=== PATIENT | male | born 1945 | race Caucasian/White ===

== ENCOUNTER 2024-01-16 13:39 | Outpatient (AMB) | payer MEDICARE, OTHER, SELFPAY ==
--- NOTE | 2024-01-16 13:40 | A.OFFVIS_ITS ---
Intake Vital Signs 01/16/24 13:58 Height 5 ft 8 in Weight 182 lb 4 oz BMI 27.7 BP 142/80 H Blood Pressure Location Lt brachial Position Sitting Pulse 67 Pulse Source Pulse Oximeter Pulse Oximetry (%) 97 Oxygen Delivery Method Room Air Intake Visit Reasons: ENP-RAFAEL/Chronic Insomnia - CONF w/address Intake Note: Patient presents for RAFAEL/Chronic Insomnia. Allergies Ulises food Allergy (Mild, Uncoded 01/16/24 13:49) Rash HPI HPI Comments History of Present Illness Details 78 y/o male patient presents for new in- person visit for evaluation of chronic insomnia and RAFAEL. Pt reports difficulty falling asleep and staying sleep. He uses melatonin, magnesium and trazodone for sleep. He wakes up frequently at night. Having difficulty sleeping due to nasal congestion and cold feet, neuropathy. He reports fibromyalgia and has weird body feeling, and it also wakes him up. He uses gabapentin 600 mg qHS and melatonin 3mg. Pt was aslo diagnosed with RAFAEL and has been using CPAP. He is followed by [facility]. He moved from [place] 1.5 year ago. His last sleep study was done 3 years ago, had new CPAP. He compliant for CPAP. [facility] Surgical History (Updated 01/16/24 @ 13:53 by Jo Ann Hartman CMA) History of carpal tunnel surgery Previous back surgery Family History Father High blood sugar Brother Mental deterioration Brother Cancer of pancreas Social History (Updated 01/16/24 @ 13:58 by Jo Ann Hartman CMA) Housing: Assisted Living Facility Alcohol intake: never Patient Tobacco Use Status: Never used Tobacco Review of Systems Const All systems reviewed & are unremarkable except as noted in HPI and below Physical Exam Vital Signs: Last Vital Signs Pulse 67 01/16/24 13:58 BP 142/80 H 01/16/24 13:58 Pulse Ox 97 01/16/24 13:58 Oxygen Delivery Method Room Air 01/16/24 13:58 BMI result Body Mass Index 27.7 Const General: cooperative Nutritional Appearance: average body habitus Orientation/consciousness: patient oriented x3 Neck Neck: Yes full ROM and Yes supple Resp Effort & Inspection: normal respiratory effort and able to speak in complete sentences Neuro General: patient oriented x3, gait normal and moves all extremities Cognition (Neuro): normal cognition Gait exam (Neuro): Normal gait present Motor exam (neuro): 5/5 motor strength present throughout Psych Appearance: grossly normal Mental Status: mental status grossly normal Speech and movement: Normal speech and movement present Affect: normal affect Attitude: cooperative Assessment & Plan Assessment & Plan (1) Insomnia: Code(s): G47.00 - Insomnia, unspecified (2) RAFAEL on CPAP: Code(s): G47.33 - Obstructive sleep apnea (adult) (pediatric) Plan Pt was evaluated and discussed the plan of care with Dr. Miller. Advised patient to continue to take trazodone 25 mg, and melatonin up to 9 mg. Increase gabapentin to 900 mg qHS to manage neuropathy. Continue to take Magnesium 400 mg q HS. Sleep hygiene education provided. Continue to use CPAP to treat sleep apnea. Medications: New gabapentin 300 mg PO BEDTIME 30 caps 3RF 30 days gabapentin Take 300 mg, 1 capsule with gabapentin 600 mg qHS 300 mg PO BEDTIME 30 caps 3RF 30 days Coding Level of Care Code New Pt Level 3 (28296) Diagnoses Insomnia G47.00 RAFAEL on CPAP G47.33
[2024-01-16 13:58] VITALS: BP 142/80; PULSE 67; O2SAT 97; BMI 27.7
== END 2024-01-16 14:35 | disposition home or self-care (01) ==
PROVIDERS: Visit Provider Nurse Practitioner Family
DX: G47.00 Insomnia, unspecified (principal); G47.33 Obstructive sleep apnea (adult) (pediatric)
CPT/HCPCS: 99203

== ENCOUNTER → 2024-01-16 13:39 | Outpatient (BNVA) | payer MEDICARE, OTHER, SELFPAY | PROVIDERS: Visit Provider Nurse Practitioner Family | DX: G47.33 Obstructive sleep apnea (adult) (pediatric) (principal); G47.00 Insomnia, unspecified | CPT/HCPCS: 99202 ==

== ENCOUNTER 2025-01-01 10:04 | Outpatient (AMB) | payer MEDICARE, SELFPAY ==
[2025-01-01 10:21] VITALS: BP 144/69; PULSE 78; O2SAT 97; BMI 25.8
--- NOTE | 2025-01-01 10:21 | A.OFFVIS_ITS ---
Vital Signs 01/01/25 10:21 Height 5 ft 8 in Weight 170 lb BMI 25.8 BP 144/69 H Blood Pressure Location Lt brachial Position Sitting Pulse 78 Pulse Source Pulse Oximeter Pulse Oximetry (%) 97 Oxygen Delivery Method Room Air Intake Visit Reasons: Uncontrolled pain Transit Bus Operator Required: No Allergies Kosovan food Allergy (Mild, Uncoded 01/01/25 10:21) Rash Medication List - Last Reconciled 01/01/25 by Selene Pastor, SHEET METAL DUCT INSTALLER APPRENTICE amlodipine 5 mg PO DAILY aspirin 81 mg PO DAILY bupropion HCl XL 450 mg PO DAILY cetirizine 10 mg PO DAILY PRN cholecalciferol (vitamin D3) 10 mcg PO DAILY clobetasol 0.05% 1 appl topical BID coenzyme Q10 100 mg PO DAILY dextroamphetamine-amphetamine 20 mg (Adderall) 20 mg PO BID dextroamphetamine-amphetamine 30 mg ER 30 mg PO DAILY fluticasone propionate 50 mcg/actuation 1 spray intranasal DAILY irbesartan 150 mg PO DAILY melatonin 3 mg PO BEDTIME PRN metformin 1,000 mg PO DAILY mirabegron ER 50 mg PO DAILY oxycodone 5 mg PO BID PRN pregabalin 100 mg PO DAILY psyllium husk 0.52 grams PO DAILY tadalafil 2.5 mg PO DAILY tamsulosin (Flomax) 0.4 mg PO BEDTIME trazodone 25 mg PO DAILY HPI Comments Details: Tavares is very pleasant 79 years old gentleman who presents in my office with complains on pain in the right hip and right knee. He reports that this pain is coming from bilateral osteoarthritis of the knees as well as right hip arthritis. He stated that this pain started 8 weeks ago however I believe that it could be longer than that probably . He has very poor historian and he is certainly has short term memory problem because he during the conversation today kept asking me and repeating questions about issues we just discussed. He came to this office with the desire to increase the dose of the opioid medications he was prescribed By his primary care physician. He was prescribed oxycodone 5 mg q.d., unfortunately even this small dose might be detrimental for his memory. I do not think he would be a good candidate for any opioids short of something immediately after the surgical procedures. He states that he can not sleep normally can not do activities of daily living can not take care of himself and can not function normally. He is retired individual and he lives in the nursing home. For ambulation he uses walker. He reports that movements aggravate his pain. He tried topical medications which minimally helped his pain. The pain is most severe in the evening and afternoon. The pain is less severe in the morning. In terms of tissue he describes his pain as pulsing and pounding, stabbing and lancinating, sharp and lacerating, pinching and crushing, hot burning and searing, sore and aching, fearful and terrifying, punishing and killing, tight squeezing and tearing. He had multiple images in the past demonstrating arthritis of the hip and arthritis of the bilateral knees, he denies any physical therapy recently. He received blinded knee steroid injecti on which helped his pain moderately however for the short period of time. His past medical history significant for diabetes, diabetic neuropathy, osteoarthritis psoriasis Arthritis, lichen planus, obstructive sleep apnea on CPAP machine. His past surgical history significant for L4-5 lumbar laminectomy with fusion. Social history he is nursing home resident, denies smoking cigarettes denies drinking alcohol denies coffee and caffeinated beverages and denies recreational drugs. [facility] Surgical History (Updated 01/16/24 @ 13:53 by SANDRA oCntreras) History of carpal tunnel surgery Previous back surgery Family History Father High blood sugar Brother Mental deterioration Brother Cancer of pancreas Social History (Updated 01/16/24 @ 13:58 by SANDRA Contreras) Housing: Assisted Living Facility Alcohol intake: never Patient Tobacco Use Status: Never used Tobacco Review of Systems Const Reports no additional complaints ENT Reports Normal hearing present Card Reports no additional complaints Resp Reports as per HPI GI Reports no additional complaints Reports no additional complaints Musc Reports as per HPI Neuro Reports no additional complaints, Reports Normal hearing present, Denies Abnormal speech present, Denies confusion and Denies Sensory deficit (Neuro) Psych Reports as per HPI and Denies confusion Physical Exam Vital Signs: Last Vital Signs Pulse 78 01/01/25 10:21 BP 144/69 H 01/01/25 10:21 Pulse Ox 97 01/01/25 10:21 Oxygen Delivery Method Room Air 01/01/25 10:21 BMI result Body Mass Index 25.8 Const General: no acute distress; No confusion Orientation/consciousness: patient oriented x3 and No confusion Eyes General: appearance normal, both eyes and all related structures Pupils: Equal, round and reactive pupils present EOM: EOMs intact bilaterally Neck Neck: Yes full ROM Chest Chest palpation & inspection: normal inspection of the chest Resp Effort & Inspection: normal respiratory effort, able to speak in complete sentences, normal respiratory pattern, no audible wheezes and no cough Cardio Jugular venous distension: no JVD GI Inspection: Yes normal to inspection Neuro General: patient oriented x3, gait normal and No confusion Cranial nerves: Yes CN's II-XII intact bilaterally, Yes Equal, round and reactive pupils present, Yes Normal hearing present and Yes Ability to bilaterally elevate shoulders present Speech: No Abnormal speech present Gait exam (Neuro): Normal gait present Motor exam (neuro): 5/5 motor strength present throughout Sensory Exam: No Sensory deficit (Neuro) Extrem Other: Lateral rotation of the right hip causes severe aggravation pain of the groin. There is no swelling on examination of the bilateral knees there is tenderness on palpation of the right knee in the patella and quadriceps femoris ligaments. There is crepitus with right knee motions. General: No pedal edema Psych Speech and movement: Normal speech and movement present Affect: normal affect Attitude: cooperative Thought process: Normal thought process present Thought content: Normal thought content present Insight: Good insight present (Psych) Judgement: Good judgement present (Psych) Assessment & Plan Assessment & Plan (1) Osteoarthritis of knees, bilateral: Code(s): M17.0 - Bilateral primary osteoarthritis of knee Category: Medical (2) Chronic pain syndrome: Code(s): G89.4 - Chronic pain syndrome Category: Medical (3) Osteoarthritis of right hip: Code(s): M16.11 - Unilateral primary osteoarthritis, right hip Category: Medical (4) Short-term memory loss: Code(s): R41.3 - Other amnesia Category: Medical Plan 1. With short memory problems I do not think opioid medications is appropriate way of treating his pain. I do not think current doses of oxycodone 5 mg he was prescribed improve his cognition and memory. I will start him on Celebrex 100 mg b.i.d.. I would be willing to increase it to 200 mg b.i.d. if this medication has no side effects. 2. I offered him Synvisc injection in his knee on the right, patient agreed for the procedure. 3. I also will schedule him for fluoroscopy guided intra-articular right hip steroid injection. 4. I also recommended him to use physical therapy in his residence home for physical therapy of his knees and his right hip. Open order for physical therapy will be given to the patient. I would need to request his residence to provide us summary of the completion of physical therapy. Orders: Orders PT Evaluation and Treatment Today M16.11 - Unilateral primary osteoarthritis, right hip, M17.0 - Bilateral primary osteoarthritis of knee Medications: New celecoxib (Celebrex) 100 mg PO BID 60 caps 2RF 30 days Patient Instructions: I here by testify that I spent 48 minutes in conversation with this patient as well as planning his care and organizing this note. Coding Level of Care Code New Pt Level 4 (91711) Diagnoses Osteoarthritis of knees, bilateral M17.0 Chronic pain syndrome G89.4 Osteoarthritis of right hip M16.11 Short-term memory loss R41.3
--- OUTSIDE RECORDS SUMMARY | 2025-01-01 12:07 | XMS_ITS | Encounter Summary ---
Author Organization [facility], Address [address] [place] [address] Phone Care Team Providers Care Platemaker Name Role Phone Delfina Friedman MD Primary Care Provider [phone] Encounter Details Date Type Department Care Team (Late st Contact Info) Description 01/13/2023 Documentation Only [facility], - [place] [address] [place] [address] Soraya Barone [address] [place] [address] Social History Tobacco Use Types Packs/Day Years Used Date Smoking Tobacco: Never Alcohol Use Standard Drinks/Week Comments Not Currently 0 (1 standard drink = 0.6 oz pur e alcohol) Sex and Gender Information Value Date Recorded Sex Assigned at Not on file Legal Sex Male 9:24 AM EST Gender Identity Not on file Sexual Orientation Not on file 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 No / Unsure 01/13/2023 1:44 PM EST documented as of this encounter Plan of Treatment Not on file documented as of this encounter Visit Diagnoses Not on filedocumented in this encounter Care Teams Platemaker Relationship Specialty Start Date End Date Delfina Friedman MD [address] [place] [address] PCP - General Internal Medicine 07/12/23 documented as of this encounter
--- OUTSIDE RECORDS SUMMARY | 2025-01-01 12:07 | XMS_ITS | Clinical Summary ---
Author Organization [facility], Address [address] [place] [address] Phone Care Team Providers Care Napper Fixer Name Role Phone Delfina Friedman MD Primary Care Provider [phone] Allergies Active Allergy Reactions Criticality Noted Date Comments Other Hives,Rash,Swelling Low 01/07/2013 Ukrainian food spices specific to [place] Ukrainian food spices specific to [place] Medications adalimumab (HUMIRA) 40 MG/0.8ML Pen-injector Kit Inject 40 mg under the skin Active amLODIPine (NORVASC) 2.5 MG tablet Take 1 tablet by mouth in the morning. 06/01/2022 Active amphetamine-dex troamphetamine (ADDERALL) 30 MG tablet Take 60 mg by mouth every morning 08/08/2022 Active ascorbic acid (VITAMIN C) 500 MG tablet Take 500 mg by mouth in the morning. Active aspirin (ST WILMER) 81 MG EC tablet Take 81 mg by mouth in the morning. 10/11/2022 Active buPROPion XL (WELLBUTRIN XL) 300 MG 24 hr tablet Take 450 mg by mouth in the morning. Active cetirizine (ZyrTEC) 10 MG tablet Take 20 mg by mouth in the morning. 06/01/2022 Active cholecalciferol (VITAMIN D-3) 25 MCG (1000 UT) tablet Take 1,000 Units by mouth in the morning. Active clobetasol (TEMOVATE) 0.05 % ointment 07/15/2022 Active insulin aspart (NovoLOG) 100 UNIT/ML injection Inject under the skin Active irbesartan (AVAPRO) 150 MG tablet Take 150 mg by mouth in the morning. Active metFORMIN (GLUCOPHAGE) 1000 MG tablet Take 1,000 mg by mouth in the morning. Active Mirabegron ER 50 MG tablet sustained-relea se 24 hour Take 2 tablets by mouth daily 05/20/2022 Active pregabalin (LYRICA) 100 MG capsule Take 300 mg by mouth in the morning. Active tadalafil (CIALIS) 2.5 MG tablet Take 10 mg by mouth in the morning. Active tamsulosin (FLOMAX) 0.4 MG 24 hr capsule Take 0.4 mg by mouth in the morning. 07/15/2022 Active traMADol (ULTRAM) 50 MG tablet Take 50 mg by mouth 07/20/2022 Active traZODone (DESYREL) 50 MG tablet Take 100 mg by mouth in the morning. Active Active Problems Problem Noted Date Diagnosed Date Renal disorder due to type 2 diabetes mellitus 0 07/12/2023 Chronic kidney disease, stage 2 (mild) 3 Disorder of nervous system due to type 2 diabete s mellitus 01/10/2023 Overview (01/10/2023): adult-onset diabetes complicated by neuropathy and Uropathy; has insulin pump and metformin daily. fasting bs 100s, 08/19/21 cbc and cmp reviewed, glucose 160, a1c 6.1; followed closely with sheriff's sergeant Dr. roque Uses DialMyApp continuous glucose monitor Last Assessment & Plan: Appreciate Dr. Sharon Beltrán have improved since she lowered his basal dose insulin Mixed hyperlipidemia 11/16/2022 Overview (01/10/2023): Last Assessment & Plan: No recent labs Continue heart healthy diet. Acute nontraumatic kidney injury 03/29/2022 Type 2 diabetes mellitus without complication Overview (01/10/2023): has insulin pump and metformin daily. fasting bs 100s, 08/19/21 cbc and cmp reviewed, glucose 160, a1c 6.1; followed closely with sheriff's sergeant Dr. roque Last Assessment & Plan: Controlled. Hemoglobin A1c is 6.0% the patient does not have anemia. As for his initial question of stopping insulin and it is possible that we can stop insulin and possibly prescribe oral antidiabetic medications or GLP-1 agonist weekly. He has no contraindications such as medullary thyroid carcinoma or pancreatitis. However I informed him that if we stop insulin that he will not be able to use the continuous glucose monitor any longer unless he has a long-acting insulin injection daily. He has decided that he would like to continue managing his diabetes with the insulin pump and CGM. He does have occasional postprandial hyperglycemia in the 200 range and this is because he is not taking into account his carbohydrate intake. He also needs to change his glucose target to be 70-180 mg/dL currently he has a set at 70-149 mg/dL. He was advised to stop bolusing by entering carbohydrate intakes for his meal to prevent postprandial hyperglycemia. Also advised to contact his [employer] company and gave them my information so that we can ensure that he gets his diabetic supplies on a timely basis. I will check a hemoglobin A1c urine microalbumin and lipid panel for the follow-up visit. Primary hyperparathyroidism 06/08/2020 Overview (01/10/2023): SESTAMIBI was negative (2019). NM scan of parathyroid, in which no parathyroid adenoma was localized (06/06/19) S/p parathyroidectomy on June 08, 2020. Last Assessment & Plan: Continues to see Dr. Roque Needs continued conversation Will recheck calcium Last Assessment & Plan: Appetite seems to have returned after surgery. Calcium levels wnl Iron deficiency anemia 11/05/2015 Essential hypertension 05/03/2015 Overview (01/10/2023): BP 129/58, irbersartan and amlodipine for years, followed by automotive mechanic here. Last Assessment & Plan: Controlled No change in treatment Last Assessment & Plan: Blood pressure well managed on ARB and CCB. Encouraged low sodium, heart healthy diet. Anemia 05/02/2011 Overview (01/10/2023): Eval By Dr. Gabrielle Sanchez in January 2015: mild normocytic hypoproliferative anemia since early November 2014... contributory factors may include renal dysfunction, given his creatinine of 1.5 today. Additionally, anemia of chronic inflammation may be present given his underlying psoriatic arthritis and chronic use of Humira. Additionally, looking back at his previous indices, he has clearly been iron deficient in the past, with ferritin values often in the low 20 range. However, I note his most recent value from December 2014 was adequate... I do not see findings on his peripheral smear that would be concerning for autoimmune hemolysis. I did note occasional dysplastic-appearing neutrophils, although the findings were generally quite mild. Further, I note that he has had a mild monocytosis intermittently since 2001, although this has not been sustained. Nonetheless, a mild monocytosis can be a precursor of more serious hematolymphoid disorders. We discussed today, that given his anemia is relatively mild and nonprogressive, various options would include an up-front bone marrow examination, or close expectant management. After an extensive discussion of risks, benefits, and alternatives, he opted for the latter. In that regard, I would recommend surveillance of his blood counts roughly every 6 months or as otherwise dictated by his clinical symptoms. Should he develop worsening anemia, other cytopenias, or a persistent/progressive monocytosis, I would be happy to see him back for further evaluation at that time, including that of the bone marrow. Last Assessment & Plan: He will try to increase his iron to twice per day. If he tolerates it, then he'll increase to three times per day temporarily. Continue daily Vitamin B12 Benign prostatic hyperplasia 05/27/2010 Overview (01/10/2023): Last Assessment & Plan: Cont 5 mg cialis daily Immunizations Name Administration Dates Next Due DTaP 04/14/2010 Hep A / Hep B 04/14/2010,03/31/2010,03/22/2010 IPV 03/23/2010 Influenza Split High Dose Pr eservative Free IM 08/12/2019,08/10/2018,08/04/2017,09/10,08/03/2015,10/01/2012 Influenza Split Preservative Free ID 08/06/2016 Influenza Vaccine, Quadrival ent, Adjuvanted 08/15/2021,07/28/2020 Influenza, Unspecified 08/09/2017,2012,09/16/2013,07/14,09/14/2006 Moderna SARS-COV-2 06/21/2022, 2,06/20/2021,02/03,01/05/2021 Pneumococcal Conjugate 13-Valent 08/06/2016,03/2015 Pneumococcal Polysaccharide 05/08/2018, 2,09/22/2003 Shingrix 01/08/2019,07/23/2018 Tdap 04/08/2022,07/05/2016 Typhoid, Parenteral 03/31/2010 Zoster 03/06/2013 Family History Medical History Relation Comments Diabetes Father Diabetes Mother Relation Status Comments Father Mother Social History Tobacco Use Types Packs/Day Years Used Date Smoking Tobacco: Never Tobacco Cessation:Counseling Given: Not Answered Alcohol Use Standard Drinks/Week Comments Not Currently [...] Not on file Not on f ile Plan of Treatment Health Maintenance Due Date Last Done Comments Hepatitis B Vaccine (2 of 3 - Hep B Twinrix 3-dose series) 05/12/2010 04/14/2010, 03/31/2010, 03/22/2010 Diabetes: Hemoglobin A1C 11/17/2022 Diabetes: Ophthalmology Exam 11/17/2022 10/07/2020, 01/15/2020 Diabetes: Pedal Pulse Checked 11/17/2022 Diabetes: Sensory Foot Exam 11/17/2022 Diabetes: Visual Foot Exam 11/17/2022 Influenza Vaccine (#1) 2024 2, 08/15/2021, 07/28/2020, Additional history exists Pneumococcal Vaccine: 65+ Years Completed 05/08/2018, 08/06/2016, 12/11/2014, Additional history exists Insurance MEDICARE [facility] Care Teams Napper Fixer Relationship Specialty Start Date End Date Delfina Friedman MD [address] [place] [address] PCP - General Internal Medicine 07/12/23
--- OUTSIDE RECORDS SUMMARY | 2025-01-01 12:07 | XMS_ITS | Encounter Summary ---
Author Organization [facility], Address [address] [place] [address] Phone Care Team Providers Care Staff Submarine Warfare Officer Name Role Phone Delfina Friedman MD Primary Care Provider Encounter Details Date Type Department Care Team (Late st Contact Info) Description 08/19/2024 Documentation Only [facility], - [place] [address] [place] [address] Clare Dey [address] [place] [address] Social History Tobacco Use Types Packs/Day Years [...] Not on file Not on f ile documented as of this encounter Plan of Treatment Not on file documented as of this encounter Visit Diagnoses Not on filedocumented in this encounter Care Teams Staff Submarine Warfare Officer Relationship Specialty Start Date End Date Delfina Friedman MD [address] [place] [address] PCP - General Internal Medicine 07/12/23 documented as of this encounter
--- OUTSIDE RECORDS SUMMARY | 2025-01-01 12:07 | XMS_ITS | Encounter Summary ---
Author Organization [facility], Address [address] [place] [address] Phone Care Team Providers Care Envelope Addresser Name Role Phone Delfina Friedman MD Primary Care Provider [phone] Encounter Details Date Type Department Care Team (Late st Contact Info) Description 07/11/2023 Documentation Only [facility], - [place] [address] [place] [phone] Robby Combs MD [address] [place] [id number] Social History Tobacco Use Types Packs/Day Years [...] on filedocumented in this encounter Care Teams Envelope Addresser Relationship Specialty Start Date End Date Delfina Friedman MD [address] [place] [address] PCP - General Internal Medicine 07/12/23 documented as of this encounter
--- OUTSIDE RECORDS SUMMARY | 2025-01-01 12:07 | XMS_ITS | Encounter Summary ---
Author Organization [facility], Address [address] [place] [address] Phone Care Team Providers Care Technology Education Instructor Name Role Phone Delfina Friedman MD Primary Care Provider [phone] Encounter Details Date Type Department Care Team (Late st Contact Info) Description 01/13/2023 Office Communication [facility], - [address] [facility] [address] [place] [address] Robby Combs MD [address] [place] [address] [facility] [place] [id number] Social History Tobacco Use Types Packs/Day Years [...] PM EST documented as of this encounter Miscellaneous Notes * Telephone Encounter - Robby Combs MD - 01/17/2023 12:58 PM EDT ty * Telephone Encounter - Melissa Mills - 01/16/2023 12:06 PM EDT Pt was not a pt at that office documented in this encounter Plan of Treatment Not on file documented as of this encounter Visit Diagnoses Not on filedocumented in this encounter Care Teams Technology Education Instructor Relationship Specialty Start Date End Date Delfina Friedman MD [address] [place] [address] PCP - General Internal Medicine 07/12/23 documented as of this encounter
== END 2025-01-01 11:17 | disposition home or self-care (01) ==
PROVIDERS: PCP Internal Medicine; Referring Provider Internal Medicine; Visit Provider Anesthesiology
DX: M17.0 Bilateral primary osteoarthritis of knee (principal); G89.4 Chronic pain syndrome; M16.11 Unilateral primary osteoarthritis, right hip; R41.3 Other amnesia
CPT/HCPCS: 99204

== ENCOUNTER → 2025-01-01 10:04 | Outpatient (BNVA) | payer MEDICARE, SELFPAY | PROVIDERS: PCP Internal Medicine; Referring Provider Internal Medicine; Visit Provider Anesthesiology | DX: M17.0 Bilateral primary osteoarthritis of knee (principal); M16.11 Unilateral primary osteoarthritis, right hip; R41.3 Other amnesia; G89.4 Chronic pain syndrome | CPT/HCPCS: 99202 ==

== ENCOUNTER 2025-01-20 09:59 | Outpatient (AMB) | payer MEDICARE, SELFPAY ==
--- NOTE | 2025-01-20 10:03 | MHC.OFFVIS ---
Vital Signs 01/20/25 10:04 Height 5 ft 8 in Weight 173 lb BMI 26.3 BP 99/54 L Blood Pressure Location Rt brachial Position Sitting Pulse 94 Pulse Source Pulse Oximeter Pulse Oximetry (%) 96 Oxygen Delivery Method Room Air Intake Visit Reasons: RIGHT KNEE SYNVISC INJECTION [employer] Ax Consultant Required: No Allergies Nepali food Allergy (Mild, Uncoded 01/20/25 10:07) Rash Medication List - Last Reconciled 01/20/25 by Selene Pastor, ACIDIZER amlodipine 5 mg PO DAILY aspirin 81 mg PO DAILY bupropion HCl XL 450 mg PO DAILY celecoxib (Celebrex) 100 mg PO BID 30 days cetirizine 10 mg PO DAILY PRN cholecalciferol (vitamin D3) 10 mcg PO DAILY clobetasol 0.05% 1 appl topical BID coenzyme Q10 100 mg PO DAILY dextroamphetamine-amphetamine 20 mg (Adderall) 20 mg PO BID dextroamphetamine-amphetamine 30 mg ER 30 mg PO DAILY fluticasone propionate 50 mcg/actuation 1 spray intranasal DAILY irbesartan 150 mg PO DAILY melatonin 3 mg PO BEDTIME PRN metformin 1,000 mg PO DAILY mirabegron ER 50 mg PO DAILY oxycodone 5 mg PO BID PRN pregabalin 100 mg PO DAILY psyllium husk 0.52 grams PO DAILY tadalafil 2.5 mg PO DAILY tamsulosin (Flomax) 0.4 mg PO BEDTIME trazodone 25 mg PO DAILY HPI Comments Details: Tavares is back in my office to receive a knee injection with Synvisc. See description of the procedure as below. He reports increased pain in the knees in the hips he relates the pain increase to detrimental weather. He reports mobility getting deteriorated. He is using walker for ambulation. Prior: complains on pain in the right hip and right knee. pain is coming from bilateral osteoarthritis of the knees as well as right hip arthritis. He has very poor historian and he is certainly has short term memory problem. He came to this office with the desire to increase the dose of the opioid medications he was prescribed By his primary care physician. He was prescribed oxycodone 5 mg q.d., unfortunately even this small dose might be detrimental for his memory. I do not think he would be a good candidate for any opioids short of something immediately after the surgical procedures. He states that he can not sleep normally can not do activities of daily living can not take care of himself and can not function normally. He is retired individual and he lives in the correction. He had multiple images in the past demonstrating arthritis of the hip and arthritis of the bilateral knees, he denies any physical therapy recently. He received blinded knee steroid injection which helped his pain moderately however for the short period of time. His past medical history significant for diabetes, diabetic neuropathy, osteoarthritis psoriasis Arthritis, lichen planus, obstructive sleep apnea on CPAP machine. His past surgical history significant for L4-5 lumbar laminectomy with fusion. [facility] Surgical History (Updated 01/16/24 @ 13:53 by SANDRA Contreras) History of carpal tunnel surgery Previous back surgery Family History (Reviewed 01/16/24 @ 13:57 by Jo Ann Hartman [facility]) Father High blood sugar Brother Mental deterioration Brother Cancer of pancreas Social History (Updated 01/16/24 @ 13:58 by SANDRA Contreras) Housing: Assisted Living Facility Alcohol intake: never Patient Tobacco Use Status: Never used Tobacco Review of Systems Const All systems reviewed & are unremarkable except as noted in HPI and below ENT Reports Normal hearing present Neuro Reports Normal hearing present, Denies Abnormal speech present, Denies confusion and Denies Sensory deficit (Neuro) Psych Denies confusion Physical Exam Vital Signs: Last Vital Signs Pulse 94 01/20/25 10:04 BP 99/54 L 01/20/25 10:04 Pulse Ox 96 01/20/25 10:04 Oxygen Delivery Method Room Air 01/20/25 10:04 BMI result Body Mass Index 26.3 Const General: no acute distress; No confusion Orientation/consciousness: patient oriented x3 and No confusion Eyes General: appearance normal, both eyes and all related structures Pupils: Equal, round and reactive pupils present EOM: EOMs intact bilaterally Neck Neck: Yes full ROM Chest Chest palpation & inspection: normal inspection of the chest Resp Effort & Inspection: normal respiratory effort, able to speak in complete sentences, normal respiratory pattern, no audible wheezes and no cough Cardio Jugular venous distension: no JVD GI Inspection: Yes normal to inspection Neuro General: patient oriented x3, gait normal and No confusion Cranial nerves: Yes CN's II-XII intact bilaterally, Yes Equal, round and reactive pupils present, Yes Normal hearing present and Yes Ability to bilaterally elevate shoulders present Speech: No Abnormal speech present Gait exam (Neuro): Normal gait present Motor exam (neuro): 5/5 motor strength present throughout Sensory Exam: No Sensory deficit (Neuro) Extrem Other: Lateral rotation of the right hip causes severe aggravation pain of the groin. There is no swelling on examination of the bilateral knees there is tenderness on palpation of the right knee in the patella and quadriceps femoris ligaments. There is crepitus with right knee motions. General: No pedal edema Psych Speech and movement: Normal speech and movement present Affect: normal affect Attitude: cooperative Thought process: Normal thought process present Thought content: Normal thought content present Insight: Good insight present (Psych) Judgement: Good judgement present (Psych) Office Procedures AMB Joint Injection/Aspiration Joint Injection/Aspiration Primary Site: right knee Prep: site was prepped using aseptic technique, site was prepped using sterile technique and injection warnings given Approach Used: anterolateral Coding 12378 - Large joint Procedure code (CPT) selection complete Office Meds Synvisc-One 48 mg/6 mL intra-articular syringe Performing Provider: Guicho Tucker MD Performing Location: [facility] [place] [facility] Administered by: Guicho Tucker MD on 01/20/25 11:22 Dose Route Admin Location Dispensed Lot Number Expiration Date NDC Finish Sander 48 mg intra-articular 6 mL [id number] 05/05/27 Durolane 60 mg/3 mL intra-articular syringe Performing Provider: Guicho Tucker MD Performing Location: [facility] [place] [facility] Documented (not given) by: Guicho Tucker MD on 01/20/25 11:22 Reason Not Given: Not Medically Necessary Assessment & Plan Assessment & Plan (1) Chronic pain syndrome: Code(s): G89.4 - Chronic pain syndrome Category: Medical (2) Osteoarthritis of knees, bilateral: Code(s): M17.0 - Bilateral primary osteoarthritis of knee Category: Medical (3) Short-term memory loss: Code(s): R41.3 - Other amnesia Category: Medical (4) Osteoarthritis of right hip: Code(s): M16.11 - Unilateral primary osteoarthritis, right hip Category: Medical Plan Synvisc injection is as above. Patient tolerated procedure fairly well. Next appointment is as needed. Orders: Orders AMB Hyaluronic Injection Today G89.4 - Chronic pain syndrome, M17.0 - Bilateral primary osteoarthritis of knee Medications: New Durolane (hyaluronate sodium, stabilized) 60 mg (3 mL) intra-articular ONCE 3 mL 0RF NS G89.4 - Chronic pain syndrome, M17.0 - Bilateral primary osteoarthritis of knee Synvisc-One (hylan g-f 20) 48 mg (6 mL) intra-articular ONCE 6 mL 0RF NS G89.4 - Chronic pain syndrome, M17.0 - Bilateral primary osteoarthritis of knee Coding Level of Care Code Est Pt Level 3 (66420) Procedure Only Diagnoses Chronic pain syndrome G89.4 Osteoarthritis of knees, bilateral M17.0 Short-term memory loss R41.3 Osteoarthritis of right hip M16.11 CPT Codes Coding - 21344 Large joint: 89003 - Large joint ([id number])
[2025-01-20 10:04] VITALS: BP 99/54; PULSE 94; O2SAT 96; BMI 26.3
--- OUTSIDE RECORDS SUMMARY | 2025-01-20 11:07 | XMS_ITS | Clinical Summary ---
Author Organization [facility], Address [address] [place] [address] Phone Care Team Providers Care Hat Body Inspector Name Role Phone Delfina Friedman MD Primary Care Provider [phone] Allergies Active Allergy Reactions Criticality Noted Date Comments Other Hives,Rash,Swelling Low 01/07/2013 Kinyarwanda food spices specific to [place] Kinyarwanda food spices specific to [place] Medications adalimumab [...] glucose 160, a1c 6.1; followed closely with pnp Dr. roque Uses [employer] continuous glucose monitor Last Assessment & Plan: [...] glucose 160, a1c 6.1; followed closely with pnp Dr. roque Last Assessment & Plan: Controlled. [...] postprandial hyperglycemia. Also advised to contact his [employer] company and gave them my information so [...] irbersartan and amlodipine for years, followed by fine unhairer here. Last Assessment & Plan: Controlled No [...] 08/06/2016, 12/11/2014, Additional history exists Insurance MEDICARE [facility] Care Teams Hat Body Inspector Relationship Specialty Start Date End Date Delfina Friedman MD [address] [place] [address] PCP - General Internal Medicine 07/12/23
--- OUTSIDE RECORDS SUMMARY | 2025-01-20 11:08 | XMS_ITS | Encounter Summary ---
Author Organization [facility], Address [address] [place] [address] Phone Care Team Providers Care River Pilot Name Role Phone Delfina Friedman MD Primary Care Provider [phone] Encounter Details Date Type Department Care Team (Late st Contact Info) Description 01/13/2023 Documentation Only [facility], - [address] [place] [address] Soraya Barone [address] [place] [address] Social History Tobacco Use Types Packs/Day Years [...] on filedocumented in this encounter Care Teams River Pilot Relationship Specialty Start Date End Date Delfina Friedman MD [address] [place] [address] PCP - General Internal Medicine 07/12/23 documented as of this encounter
--- OUTSIDE RECORDS SUMMARY | 2025-01-20 11:08 | XMS_ITS | Encounter Summary ---
Author Organization [facility], Address [address] [place] [address] Phone Care Team Providers Care Academic Registrar Name Role Phone Delfina Friedman MD Primary Care Provider [phone] Encounter Details Date Type Department Care Team (Late st Contact Info) Description 08/19/2024 Documentation Only [facility], - [address] [place] [address] Clare Dey [address] [place] [address] Social History Tobacco Use Types [...] on filedocumented in this encounter Care Teams Academic Registrar Relationship Specialty Start Date End Date Delfina Friedman MD [address] [place] [address] PCP - General Internal Medicine 07/12/23 documented as of this encounter
--- OUTSIDE RECORDS SUMMARY | 2025-01-20 11:08 | XMS_ITS | Encounter Summary ---
Author Organization [facility], Address [address] [place] [address] Phone Care Team Providers Care System Administrator Name Role Phone Delfina Friedman MD Primary Care Provider [phone] Encounter Details Date Type Department Care Team (Late st Contact Info) Description 07/11/2023 Documentation Only [facility], - [address] [place] [address] Robby Combs MD [address] [place] [phone] Social History Tobacco Use Types Packs/Day Years [...] on filedocumented in this encounter Care Teams System Administrator Relationship Specialty Start Date End Date Delfina Friedman MD [address] [place] [address] PCP - General Internal Medicine 07/12/23 documented as of this encounter
--- OUTSIDE RECORDS SUMMARY | 2025-01-20 11:08 | XMS_ITS | Encounter Summary ---
Author Organization [facility], Address [address] [place] [address] Phone Care Team Providers Care Quality Assurance Supervisor Trim Name Role Phone Delfina Friedman MD Primary Care Provider [phone] Encounter Details Date Type Department Care Team (Late st Contact Info) Description 01/13/2023 Office Communication [facility], - [address] [facility] [address] [place] [address] Robby Combs MD [address] [place] [address] [facility] [place] [phone] Social History Tobacco Use Types Packs/Day Years [...] on filedocumented in this encounter Care Teams Quality Assurance Supervisor Trim Relationship Specialty Start Date End Date Delfina Friedman MD [address] [place] [address] PCP - General Internal Medicine 07/12/23 documented as of this encounter
== END 2025-01-20 10:22 | disposition home or self-care (01) ==
LOC: HO.PMC 10:00
PROVIDERS: PCP Internal Medicine; Visit Provider Anesthesiology
DX: G89.4 Chronic pain syndrome (principal); M17.0 Bilateral primary osteoarthritis of knee; R41.3 Other amnesia; M16.11 Unilateral primary osteoarthritis, right hip
CPT/HCPCS: 20610

== ENCOUNTER → 2025-01-20 09:59 | Outpatient (BNVA) | payer MEDICARE, SELFPAY | PROVIDERS: PCP Internal Medicine; Visit Provider Anesthesiology | DX: G89.4 Chronic pain syndrome (principal); M17.0 Bilateral primary osteoarthritis of knee; M16.11 Unilateral primary osteoarthritis, right hip; R41.3 Other amnesia | CPT/HCPCS: 20610; J7325 ==

== ENCOUNTER 2025-03-05 12:57 | Outpatient (AMB) | payer MEDICARE, BC, SELFPAY ==
--- NOTE | 2025-03-05 13:04 | MHC.OFFVIS ---
Vital Signs 03/05/25 13:06 Height 5 ft 8 in Weight 173 lb BMI 26.3 BP 103/54 L Blood Pressure Location Rt brachial Position Sitting Respiration 16 Pulse 94 Pulse Source Pulse Oximeter Pulse Oximetry (%) 96 Oxygen Delivery Method Room Air Intake Visit Reasons: Follow Up/Discuss Joe Cardenas Procedure Smoke Control Supervisor Required: No Allergies Somali food Allergy (Mild, Uncoded 03/05/25 13:08) Rash Medication List - Last Reconciled 03/05/25 by Jennifer Matthews LPN amlodipine 5 mg PO DAILY aspirin 81 mg PO DAILY bupropion HCl XL 450 mg PO DAILY celecoxib (Celebrex) 100 mg PO BID 30 days cetirizine 10 mg PO DAILY PRN cholecalciferol (vitamin D3) 10 mcg PO DAILY clobetasol 0.05% 1 appl topical BID dextroamphetamine-amphetamine 20 mg (Adderall) 20 mg PO BID irbesartan 150 mg PO DAILY metformin 1,000 mg PO DAILY mirabegron ER 50 mg PO DAILY oxycodone 5 mg PO BID PRN pregabalin 100 mg PO DAILY psyllium husk 0.52 grams PO DAILY tadalafil 2.5 mg PO DAILY tamsulosin (Flomax) 0.4 mg PO BEDTIME trazodone 25 mg PO DAILY HPI Comments Details: Taavres is back in my office to to evaluate results of Synvisc injection. He denies any help from Synvisc injection. He reports that x-ray performed that knee as demonstrated terminal arthritis of the bilateral knees. He is interested in total knee replacement. He is also interested in knee bracing with Physical Medicine and Rehabilitation. I will make appropriate referrals. Prior: complains on pain in the right hip and right knee. pain is coming from bilateral osteoarthritis of the knees as well as right hip arthritis. He has very poor historian and he is certainly has short term memory problem. He came to this office with the desire to increase the dose of the opioid medications he was prescribed By his primary care physician. He was prescribed oxycodone 5 mg q.d., unfortunately even this small dose might be detrimental for his memory. I do not think he would be a good candidate for any opioids short of something immediately after the surgical procedures. He states that he can not sleep normally can not do activities of daily living can not take care of himself and can not function normally. He is retired individual and he lives in the correction. He had multiple images in the past demonstrating arthritis of the hip and arthritis of the bilateral knees, he denies any physical therapy recently. He received blinded knee steroid injection which helped his pain moderately however for the short period of time. His past medical history significant for diabetes, diabetic neuropathy, osteoarthritis psoriasis Arthritis, lichen planus, obstructive sleep apnea on CPAP machine. His past surgical history significant for L4-5 lumbar laminectomy with fusion. [facility] Surgical History (Updated 01/16/24 @ 13:53 by SANDRA Contreras) History of carpal tunnel surgery Previous back surgery Family History Father High blood sugar Brother Mental deterioration Brother Cancer of pancreas Social History (Updated 01/16/24 @ 13:58 by SANRDA Contreras) Housing: Assisted Living Facility Alcohol intake: never Patient Tobacco Use Status: Never used Tobacco Review of Systems Const All systems reviewed & are unremarkable except as noted in HPI and below ENT Reports Normal hearing present Neuro Reports Normal hearing present, Denies Abnormal speech present, Denies confusion and Denies Sensory deficit (Neuro) Psych Denies confusion Physical Exam Vital Signs: Last Vital Signs Pulse 94 03/05/25 13:06 Resp 16 03/05/25 13:06 BP 103/54 L 03/05/25 13:06 Pulse Ox 96 03/05/25 13:06 Oxygen Delivery Method Room Air 03/05/25 13:06 BMI result Body Mass Index 26.3 Const General: no acute distress; No confusion Orientation/consciousness: patient oriented x3 and No confusion Eyes General: appearance normal, both eyes and all related structures Pupils: Equal, round and reactive pupils present EOM: EOMs intact bilaterally Neck Neck: Yes full ROM Chest Chest palpation & inspection: normal inspection of the chest Resp Effort & Inspection: normal respiratory effort, able to speak in complete sentences, normal respiratory pattern, no audible wheezes and no cough Cardio Jugular venous distension: no JVD GI Inspection: Yes normal to inspection Neuro General: patient oriented x3, gait normal and No confusion Cranial nerves: Yes CN's II-XII intact bilaterally, Yes Equal, round and reactive pupils present, Yes Normal hearing present and Yes Ability to bilaterally elevate shoulders present Speech: No Abnormal speech present Gait exam (Neuro): Normal gait present Motor exam (neuro): 5/5 motor strength present throughout Sensory Exam: No Sensory deficit (Neuro) Extrem Other: Lateral rotation of the right hip causes severe aggravation pain of the groin. There is no swelling on examination of the bilateral knees there is tenderness on palpation of the right knee in the patella and quadriceps femoris ligaments. There is crepitus with right knee motions. General: No pedal edema Psych Speech and movement: Normal speech and movement present Affect: normal affect Attitude: cooperative Thought process: Normal thought process present Thought content: Normal thought content present Insight: Good insight present (Psych) Judgement: Good judgement present (Psych) Assessment & Plan Assessment & Plan (1) Osteoarthritis of knees, bilateral: Code(s): M17.0 - Bilateral primary osteoarthritis of knee Category: Medical Plan I will send the patient for orthopedic surgeon Dr. Jerald Adkins to discuss possible total knee replacement. I will send this patient to Dr. Farmer to discuss possible knee bracing. Orders: Referrals Orthopedics Referral M17.0 - Bilateral primary osteoarthritis of knee Physiatry Referral M17.0 - Bilateral primary osteoarthritis of knee Coding Level of Care Code Est Pt Level 3 (30598) Diagnoses Osteoarthritis of knees, bilateral M17.0
[2025-03-05 13:06] VITALS: BP 103/54; PULSE 94; RESP 16; O2SAT 96; BMI 26.3
--- OUTSIDE RECORDS SUMMARY | 2025-03-05 14:13 | XMS_ITS | Encounter Summary ---
Author Organization [facility], Address [address] [place] [address] Phone Care Team Providers Care Flour Worker Name Role Phone Delfina Friedman MD Primary Care Provider [phone] Encounter Details Date Type Department Care Team (Late st Contact Info) Description 01/13/2023 Documentation Only [facility], - [address] [place] [address] Soraya Barone [address] [place] [address] Social History Tobacco Use Types Packs/Day Years [...] on filedocumented in this encounter Care Teams Flour Worker Relationship Specialty Start Date End Date Delfina Friedman MD [address] [place] [address] PCP - General Internal Medicine 07/12/23 documented as of this encounter
--- OUTSIDE RECORDS SUMMARY | 2025-03-05 14:13 | XMS_ITS | Clinical Summary ---
Author Organization [facility], Address [address] [place] [address] Phone Care Team Providers Care Timber Watchman Name Role Phone Delfina Friedman MD Primary Care Provider [phone] Allergies Active Allergy Reactions Criticality Noted Date Comments Other Hives,Rash,Swelling Low 01/07/2013 Yi food spices specific to [place] Yi food spices specific to [place] Medications adalimumab [...] glucose 160, a1c 6.1; followed closely with circus performer Dr. roque Uses [employer] continuous glucose monitor Last Assessment & Plan: [...] glucose 160, a1c 6.1; followed closely with circus performer Dr. roque Last Assessment & Plan: Controlled. [...] postprandial hyperglycemia. Also advised to contact his [employer] company and gave them my information so [...] irbersartan and amlodipine for years, followed by yardmaster here. Last Assessment & Plan: Controlled No [...] Plan: Cont 5 mg cialis daily Immunizations Immunization Administration Dates Next Due DTaP 04/14/2010 Hep [...] Diabetes: Visual Foot Exam 11/17/2022 Influenza Vaccine (Season Ended) 2025 08/25/2022, 08/15/2021, 07/28/2020, Additional history exists Pneumococcal Vaccine: 50+ Years Completed 05/08/2018, 08/06/2016, 12/11/2014, Additional history exists Insurance Medicare [facility] Care Teams Timber Watchman Relationship Specialty Start Date End Date Delfina Friedman MD [address] [place] [address] PCP - General Internal Medicine 07/12/23
--- OUTSIDE RECORDS SUMMARY | 2025-03-05 14:13 | XMS_ITS | Encounter Summary ---
Author Organization [facility], Address [address] [place] [address] Phone Care Team Providers Care Loader Operator Supervisor Name Role Phone Delfina Friedman MD Primary Care Provider [phone] Encounter Details Date Type Department Care Team (Late st Contact Info) Description 01/13/2023 Office Communication [facility], - [address] [facility] [address] [place] [address] Robby Combs MD [address] [place] [address] [place] [phone] Social History Tobacco Use Types Packs/Day Years [...] on filedocumented in this encounter Care Teams Loader Operator Supervisor Relationship Specialty Start Date End Date Delfina Friedman MD [address] [place] [address] PCP - General Internal Medicine 07/12/23 documented as of this encounter
--- OUTSIDE RECORDS SUMMARY | 2025-03-05 14:13 | XMS_ITS | Encounter Summary ---
Author Organization [facility], Address [address] [place] [address] Phone Care Team Providers Care [employer] Manager Name Role Phone Delfina Friedman MD Primary Care Provider [phone] Encounter Details Date Type Department Care Team (Late st Contact Info) Description 07/11/2023 Documentation Only [facility], - [address] [place] [id number] Robby Combs MD [address] [place] [address] [place] [id number] Social History Tobacco Use Types Packs/Day Years [...] on filedocumented in this encounter Care Teams [employer] Manager Relationship Specialty Start Date End Date Delfina Friedman MD [address] [place] [address] PCP - General Internal Medicine 07/12/23 documented as of this encounter
--- OUTSIDE RECORDS SUMMARY | 2025-03-05 14:13 | XMS_ITS | Encounter Summary ---
Author Organization [facility], Address [address] [place] [address] Phone Care Team Providers Care Social Work Instructor Name Role Phone Delfina Friedman MD Primary Care Provider [phone] Encounter Details Date Type Department Care Team (Late st Contact Info) Description 08/19/2024 Documentation Only [facility], - Mervin Michaud [address] [place] [address] Clare Dey [address] [place] [address] Social History Tobacco Use Types [...] on filedocumented in this encounter Care Teams Social Work Instructor Relationship Specialty Start Date End Date Delfina Friedman MD [address] [place] [address] PCP - General Internal Medicine 07/12/23 documented as of this encounter
== END 2025-03-05 13:19 | disposition home or self-care (01) ==
PROVIDERS: PCP Internal Medicine; Visit Provider Anesthesiology
DX: M17.0 Bilateral primary osteoarthritis of knee (principal)
CPT/HCPCS: 99213

== ENCOUNTER → 2025-03-05 12:57 | Outpatient (BNVA) | payer MEDICARE, SELFPAY | PROVIDERS: PCP Internal Medicine; Visit Provider Anesthesiology | DX: M17.0 Bilateral primary osteoarthritis of knee (principal) | CPT/HCPCS: 99212 ==